=== PATIENT | male | born 1935 | race Caucasian/White ===

== ENCOUNTER 2017-12-28 10:08 | Day surgery (SDC) | payer MEDICARE, BC ==
[~2017-12-28 10:08] MED LIST: Bupivacaine 0.5% 50 ML MDV ONE; Lidocaine 1% with EPINEPHrine 1:100,000 50 ML MDV ONE; Midazolam 1 MG/ML 2 ML SDV ONE; Propofol 200 MG/20 ML SDV ONE; fentaNYL 100 MCG/2 ML SDV ONE
[2017-12-28] MEDS ORDERED: Lactated Ringers 1,000 ML IV SCH (10:45)
[2017-12-28] MEDS ORDERED: ceFAZolin 2 GM in Premix Bag 1 BAG IV ONE (11:30)
[2017-12-28] MEDS ORDERED: metroNIDAZOLE/Normal Saline 500 MG in Premix Bag 1 BAG IV ONE (11:30)
--- NOTE | 2017-12-28 13:34 | OR ---
DATE OF PROCEDURE: 12/28/2017 PROCEDURE: Open inguinal hernia, left, inguinal hernia, incarcerated, non-strangulated. COMPLICATIONS: None. PLANT UTILITIES ENGINEER: None. ANESTHESIA: MAC/local. RISKS: Risks, benefits, alternatives, and limitations including, but not limited to infection, bleeding, injury to abdominal structures, recurrence, chronic wound, chronic pain formation, and other risks not listed here were explained, and the patient then wished to proceed. PROCEDURE IN DETAIL: The patient was placed in the supine position. A curvilinear incision was made in a classic fashion approximately 1 fingerbreadth above the pubis on the left. This was done after anesthetizing with lidocaine in a standard wheal fashion. The skin was transected with a 15 blade, and electrocautery was used to carry down to the external oblique aponeurosis, which was opened with a 15 blade. Metzenbaum scissors were used to open the external oblique aponeurosis. The indirect incarcerated inguinal hernia was identified and was mobilized, eventually dissected, and deflected back into the abdomen. Uebe-[id number]-[id number] system was then used to close the defect. This was sutured into place multiple times using 0 Vicryl suture. The overlay patch was also sewed in proximity to the pubic symphysis. This was sutured approximately over 1 cm. For subcutaneous tissues, 3-0 Vicryl was used. The skin was closed with 4-0 Vicryl. Dermabond was applied. The patient tolerated the procedure well. Ion Renteria MD /[id number]
== END 2017-12-28 14:16 | disposition home or self-care (01) ==
LOC: JP.SDS 10:08
PROVIDERS: ATTEND Surgery
DX: K40.30 Unilateral inguinal hernia, with obstruction, without gangrene, not specified as recurrent (principal); I10 Essential (primary) hypertension; Z86.73 Personal history of transient ischemic attack (TIA), and cerebral infarction without residual deficits
CPT/HCPCS: 49507; C1781; J0690; J2250; J2704; J3010; J7120

== ENCOUNTER 2020-11-08 08:24 | Inpatient (IN) | payer BC, MEDICARE ==
[2020-11-08] MEDS ORDERED: Lactated Ringers 1,000 ML IV ONE (09:14)
[2020-11-08] MEDS ORDERED: Phytonadione 5 MG Tab PO ONE (09:19)
[2020-11-08] MEDS ORDERED: Sodium Chloride 0.9% 10 ML Syringe FLUSH PRN (09:27)
--- NOTE | 2020-11-08 09:33 | EDM.PDOC ---
ED HPI GENERAL MEDICAL PROBLEM - General Chief Complaint: Gastrointestinal Problem Stated Complaint: BODY SWEATS, BLOOD IN URINE, DIARRHEA Time Seen by Provider: 11/08/20 09:15 Source of Information: Reports: Patient, Family, Old Records, RN History Limitations: Reports: No Limitations - History of Present Illness INITIAL COMMENTS - FREE TEXT/NARRATIVE: 85 yo male presents along with his due to dark blood per rectum this morning after awakening along with diaphoresis. He is on warfarin for afib. He has had colonoscopy remotely, but is unable to tell me if he had diverticular dz or not. He denies any abdominal pain. He has had mild nausea without vomiting. No hx of GI bleeding in the past. One bloody stool passage so far today. Onset: Today, Sudden Onset Date: 11/08/20 Duration: Minutes:, Constant Location: Reports: Abdomen Quality: Reports: Other (no pain) Severity: Moderate Improves with: Reports: None Worsens with: Reports: None Context: Reports: Other (See HPI) Associated Symptoms: Reports: Nausea/Vomiting (no vomiting). Denies: Fever/Chills - Related Data Allergies Allergy/AdvReac Type Severity Reaction Status Date / Time No Known Allergies Allergy Verified 11/08/20 08:43 Home Meds: Home Meds Aspirin [Halfprin] 81 mg PO DAILY 12/27/17 [History] Pravastatin Sodium [Pravachol] 20 mg PO DAILY 12/27/17 [History] Warfarin [Coumadin] 2.5 mg PO ASDIRECTED 12/27/17 [History] allopurinoL [Zyloprim] 300 mg PO BEDTIME 12/27/17 [History] dilTIAZem HCL [Cartia Xt] 120 mg PO DAILY 12/27/17 [History] Loratadine [Claritin] 10 mg PO DAILY 11/08/20 [History] atenoloL [Atenolol] 12.5 mg PO BID 11/08/20 [History] Past Medical History HEENT History: Reports: Allergic Rhinitis Cardiovascular History: Reports: Arrhythmia, High Cholesterol, Hypertension, Other (See Below) Other Cardiovascular History: "incedent" Respiratory History: Reports: None Gastrointestinal History: Reports: Chronic Constipation Genitourinary History: Reports: Prostate Disorder, Other (See Below) Other Genitourinary History: CA prostate Musculoskeletal History: Reports: Amputation, Neck Pain, Chronic Neurological History: Reports: Migraines Psychiatric History: Reports: None Endocrine/Metabolic History: Reports: Obesity/BMI 30+ Hematologic History: Reports: None Immunologic History: Reports: None Oncologic (Cancer) History: Reports: Prostate Dermatologic History: Reports: Other (See Below) Other Dermatologic History: 'skin cancer' - Infectious Disease History Infectious Disease History: Reports: Chicken Pox, Herpes, Mumps - Past Surgical History HEENT Surgical History: Reports: None Cardiovascular Surgical History: Reports: None Respiratory Surgical History: Reports: None GI Surgical History: Reports: Appendectomy, Colonoscopy, Hernia, Abdominal Male Surgical History: Reports: Other (See Below) Other Male Surgeries/Procedures: radiation prostate Endocrine Surgical History: Reports: None Neurological Surgical History: Reports: Other (See Below) Other Neurological Surgeries/Procedures: disc between 3&4 neck Musculoskeletal Surgical History: Reports: Amputation, Carpal Tunnel, Other (See Below) Other Musculoskeletal Surgeries/Procedures:: neck surgery 3rd and 4th vertebre . Dermatological Surgical History: Reports: None Social & Family History - Family History Family Medical History: No Pertinent Family History - Tobacco Use Tobacco Use Status *Q: Never Tobacco User - Caffeine Use Caffeine Use: Reports: None Other Caffeine Use: decaf coffee - Recreational Drug Use Recreational Drug Use: No ED ROS GENERAL - Review of Systems Review Of Systems: See Below Constitutional: Reports: No Symptoms HEENT: Reports: No Symptoms Respiratory: Reports: No Symptoms Cardiovascular: Reports: No Symptoms GI/Abdominal: Reports: Bloody Stool, Nausea. Denies: Abdominal Pain, Constipation, Hematemesis, Hematochezia, Vomiting : Reports: No Symptoms Musculoskeletal: Reports: No Symptoms Skin: Reports: No Symptoms Neurological: Reports: No Symptoms ED EXAM, GI/ABD - Physical Exam Exam: See Below Exam Limited By: No Limitations General Appearance: Alert, WD/WN, No Apparent Distress Eyes: Bilateral: Normal Appearance Ears: Normal External Exam, Normal Canal, Hearing Loss, Other (bilateral hearing aids). No: Hearing Grossly Normal Nose: Normal Inspection, No Blood Throat/Mouth: Normal Inspection, Normal Lips, Normal Oropharynx, Normal Voice, No Airway Compromise Head: Atraumatic, Normocephalic Neck: Normal Inspection Respiratory/Chest: No Respiratory Distress, Lungs Clear, Normal Breath Sounds, No Accessory Muscle Use Cardiovascular: Regular Rate, Rhythm, No Edema GI/Abdominal Exam: Soft, Non-Tender, No Distention, Abnormal Bowel Sounds (increased). No: Distended, Guarding, Rigid, Rebound, Tender Back Exam: Normal Inspection Extremities: Normal Inspection, Normal Range of Motion, Non-Tender, No Pedal Edema Neurological: Alert, Oriented, CN II-XII Intact, Normal Cognition, No Motor/Sensory Deficits Psychiatric: Normal Affect, Normal Mood Skin Exam: Warm, Dry, Intact, Normal Color, No Rash Course - Vital Signs Text/Narrative:: Dr. Adamson called @ 0932h, will see in ER Last Recorded V/S: Last Vital Signs Temp 36.2 C 11/08/20 09:03 Pulse 89 11/08/20 09:03 Resp 22 H 11/08/20 09:03 BP 110/66 11/08/20 09:03 Pulse Ox 97 11/08/20 09:03 Orthostatic Blood Pressure [ 82/51 Sitting] Orthostatic Blood Pressure [ 113/71 Supine] - Orders/Labs/Meds Orders: Active Orders 24 hr Category Date Time Status Orthostatic Vital Signs [RC] ASDIRECTED Care 11/08/20 08:37 Active TYPE AND SCREEN [BBK] Stat Lab 11/08/20 09:14 Ordered Lactated Ringers [Ringers, Lactated] 1,000 ml Med 11/08/20 09:14 Active IV BOLUS Sodium Chloride 0.9% [Saline Flush] Med 11/08/20 09:27 Active 10 ml FLUSH ASDIRECTED PRN Saline Lock Insert [OM.PC] Routine Oth 11/08/20 09:27 Ordered Medication Orders Lactated Ringer's (Ringers, Lactated) 1,000 mls @ 1,000 mls/hr IV BOLUS ONE Stop: 11/08/20 10:13 Sodium Chloride (Saline Flush) 10 ml FLUSH ASDIRECTED PRN PRN Reason: Keep Vein Open Labs: Laboratory Tests 11/08/20 11/08/20 11/08/20 Range/Units 08:40 08:40 09:13 WBC 11.5 H (4.5-11.0) K/uL RBC 4.55 (4.30-5.90) M/uL Hgb 14.6 (12.0-15.0) g/dL Hct 44.2 (40.0-54.0) % MCV 97 (80-98) fL MCH 32 H (27-31) pg MCHC 33 (32-36) % Plt Count 249 (150-400) K/uL PT 21.9 H (9.5-12.0) sec INR 2.04 H (0.80-1.20) Sodium 139 L (140-148) mmol/L Potassium 4.9 (3.6-5.2) mmol/L Chloride 104 (100-108) mmol/L Carbon Dioxide 25 (21-32) mmol/L Anion Gap 14.9 H (5.0-14.0) mmol/L BUN 33 H D (7-18) mg/dL Creatinine 1.3 (0.8-1.3) mg/dL Est Cr Clr Drug Dosing 40.79 mL/min Estimated GFR (MDRD) 52 L (>60) Glucose 140 H (74-106) mg/dL Calcium 9.0 (8.5-10.1) mg/dL Meds: Medications Generic Name Dose Route Start Last Admin Trade Name Freq PRN Reason Stop Dose Admin Lactated Ringer's 1,000 mls @ 1,000 mls/hr 11/08/20 09:14 Ringers, Lactated IV 11/08/20 10:13 BOLUS ONE Sodium Chloride 10 ml 11/08/20 09:27 Saline Flush FLUSH ASDIRECTED PRN Keep Vein Open Discontinued Medications Generic Name Dose Route Start Last Admin Trade Name Freq PRN Reason Stop Dose Admin Phytonadione 5 mg 11/08/20 09:19 Mephyton PO 11/08/20 09:20 ONETIME ONE Departure - Departure Time of Disposition: 09:50 Disposition: Admitted As Inpatient 65 Condition: Fair Clinical Impression: GI bleed Qualifiers: GI bleed type/associated pathology: unspecified gastrointestinal hemorrhage type Qualified Code(s): K92.2 - Gastrointestinal hemorrhage, unspecified - Discharge Information *PRESCRIPTION DRUG MONITORING PROGRAM REVIEWED*: Not Applicable *COPY OF PRESCRIPTION DRUG MONITORING REPORT IN PATIENT ALLEN: Not Applicable Referrals: Stiven Alcantar MD [Primary Care Provider] - Forms: ED Department Discharge Sepsis Event Note (ED) - Evaluation Sepsis Screening Result: No Definite Risk - Focused Exam Vital Signs: Vital Signs Temp Pulse Resp BP Pulse Ox 11/08/20 09:03 36.2 C 89 22 H 110/66 97 - My Orders Last 24 Hours: My Active Orders 11/08/20 08:37 Orthostatic Vital Signs [RC] ASDIRECTED 11/08/20 09:14 TYPE AND SCREEN [BBK] Stat Lactated Ringers [Ringers, Lactated] 1,000 ml IV BOLUS 11/08/20 09:27 Sodium Chloride 0.9% [Saline Flush] 10 ml FLUSH ASDIRECTED PRN Saline Lock Insert [OM.PC] Routine - Assessment/Plan Last 24 Hours: My Active Orders 11/08/20 08:37 Orthostatic Vital Signs [RC] ASDIRECTED 11/08/20 09:14 TYPE AND SCREEN [BBK] Stat Lactated Ringers [Ringers, Lactated] 1,000 ml IV BOLUS 11/08/20 09:27 Sodium Chloride 0.9% [Saline Flush] 10 ml FLUSH ASDIRECTED PRN Saline Lock Insert [OM.PC] Routine
--- NOTE | 2020-11-08 10:36 | PCM.HP.2 ---
H&P History of Present Illness - General Date of Service: 11/08/20 Admit Problem/Dx: Admission Diagnosis/Problem Admission Diagnosis/Problem Gastrointestinal hemorrhage Source of Information: Patient, Provider History Limitations: Reports: No Limitations - History of Present Illness Initial Comments - Free Text/Narative: CC: Things just weren't right HPI: Дмитрий presented to the emergency room this morning after an episode of nausea, diaphoresis and a large bloody bowel movement. He reports that things had been going well prior to this morning. He has not had any recent difficulties or concerns. This morning when he got up he just did not feel quite right. He felt a little bit nauseated and a little bit woozy with some lightheadedness. Shortly thereafter he had the urge to have a bowel movement and headed to the bathroom. He reports a very large bowel movement that seemed like it was mostly blood and stained the toilet bowl. Since that time his dizziness has improved but has not resolved. He was diaphoretic at the time of the bowel movement but this has resolved. He has not had any abdominal pain this morning or recently. He does report mild constipation over the past couple of days but otherwise nothing out of the ordinary. He has never had an episode like this in the past. No fevers, cough or shortness of breath. He is not taking any new medications. No recent trauma. Work-up in the emergency room revealed a normal hemoglobin. INR is 2. Orthostatic vital signs were quite positive and he is receiving IV fluid boluses. Acute gastrointestinal hemorrhage, likely diverticular, is suspected. He did receive 5 mg of vitamin K in the emergency room. The patient will be admitted to the intensive care unit for further management. - Related Data Allergies/Adverse Reactions: Allergies Allergy/AdvReac Type Severity Reaction Status Date / Time No Known Allergies Allergy Verified 11/08/20 08:43 Home Medications: Home Meds Aspirin [Halfprin] 81 mg PO DAILY 12/27/17 [History] Pravastatin Sodium [Pravachol] 20 mg PO DAILY 12/27/17 [History] Warfarin [Coumadin] 2.5 mg PO ASDIRECTED 12/27/17 [History] allopurinoL [Zyloprim] 300 mg PO BEDTIME 12/27/17 [History] dilTIAZem HCL [Cartia Xt] 120 mg PO DAILY 12/27/17 [History] Loratadine [Claritin] 10 mg PO DAILY 11/08/20 [History] atenoloL [Atenolol] 12.5 mg PO BID 11/08/20 [History] Past Medical History HEENT History: Reports: Allergic Rhinitis Cardiovascular History: Reports: Arrhythmia, High Cholesterol, Hypertension, Other (See Below) Other Cardiovascular History: "incedent" Respiratory History: Reports: None Gastrointestinal History: Reports: Chronic Constipation Genitourinary History: Reports: Prostate Disorder, Other (See Below) Other Genitourinary History: CA prostate Musculoskeletal History: Reports: Amputation, Neck Pain, Chronic Neurological History: Reports: Migraines Psychiatric History: Reports: None Endocrine/Metabolic History: Reports: Obesity/BMI 30+ Hematologic History: Reports: None Immunologic History: Reports: None Oncologic (Cancer) History: Reports: Prostate Dermatologic History: Reports: Other (See Below) Other Dermatologic History: 'skin cancer' - Infectious Disease History Infectious Disease History: Reports: Chicken Pox, Herpes, Mumps - Past Surgical History HEENT Surgical History: Reports: None Cardiovascular Surgical History: Reports: None Respiratory Surgical History: Reports: None GI Surgical History: Reports: Appendectomy, Colonoscopy, Hernia, Abdominal Male Surgical History: Reports: Other (See Below) Other Male Surgeries/Procedures: radiation prostate Endocrine Surgical History: Reports: None Neurological Surgical History: Reports: Other (See Below) Other Neurological Surgeries/Procedures: disc between 3&4 neck Musculoskeletal Surgical History: Reports: Amputation, Carpal Tunnel, Other (See Below) Other Musculoskeletal Surgeries/Procedures:: neck surgery 3rd and 4th vertebre . Dermatological Surgical History: Reports: None Social & Family History - Family History Family Medical History: No Pertinent Family History - Tobacco Use Tobacco Use Status *Q: Never Tobacco User - Caffeine Use Caffeine Use: Reports: None Other Caffeine Use: decaf coffee - Alcohol Use Alcohol Use History: No - Recreational Drug Use Recreational Drug Use: No H&P Review of Systems - Review of Systems: Review Of Systems: See Below Free Text/Narrative: A complete 12 point review of systems was obtained. Pertinent positives and negatives are noted in the history of present illness. All other systems were reviewed and were negative except as noted. Exam - Exam Exam: See Below - Vital Signs Vital Signs: Last Vital Signs Temp 36.2 C 11/08/20 09:03 Pulse 89 11/08/20 09:03 Resp 22 H 01/31/21 09:03 BP 110/66 11/08/20 09:03 Pulse Ox 97 11/08/20 09:03 Orthostatic Blood Pressure [ 82/51 Sitting] Orthostatic Blood Pressure [ 113/71 Supine] Weight: 96.162 kg - Exam Quality Assessment: No: Supplemental Oxygen General: Alert, Oriented, Cooperative. No: Mild Distress HEENT: Conjunctiva Clear, Mucosa Moist & [place]. No: Scleral Icterus Neck: Supple, Trachea Midline Lungs: Clear to Auscultation, Normal Respiratory Effort Cardiovascular: Irregular Rhythm, Tachycardia GI/Abdominal Exam: Soft, No Distention, No Mass, Abnormal Bowel Sounds (hyperactive ) Extremities: No Pedal Edema. No: Increased Warmth Peripheral Pulses: 1+: Dorsalis Pedis (L), Dorsalis Pedis (R) Skin: Warm, Dry Neuro Extensive - Mental Status: Alert, Oriented x3, Nl Response to Commands Neuro Extensive - Motor, Sensory, Reflexes: No: Dysarthria, Abnormal Motor, Tremor Psychiatric: Alert, Normal Affect - Patient Data Lab Results Last 24 hrs: Laboratory Results - last 24 hr 11/08/20 11/08/20 11/08/20 Range/Units 08:40 08:40 09:13 WBC 11.5 H (4.5-11.0) K/uL RBC 4.55 (4.30-5.90) M/uL Hgb 14.6 (12.0-15.0) g/dL Hct 44.2 (40.0-54.0) % MCV 97 (80-98) fL MCH 32 H (27-31) pg MCHC 33 (32-36) % Plt Count 249 (150-400) K/uL PT 21.9 H (9.5-12.0) sec INR 2.04 H (0.80-1.20) Sodium 139 L (140-148) mmol/L Potassium 4.9 (3.6-5.2) mmol/L Chloride 104 (100-108) mmol/L Carbon Dioxide 25 (21-32) mmol/L Anion Gap 14.9 H (5.0-14.0) mmol/L BUN 33 H D (7-18) mg/dL Creatinine 1.3 (0.8-1.3) mg/dL Est Cr Clr Drug Dosing 40.79 mL/min Estimated GFR (MDRD) 52 L (>60) Glucose 140 H (74-106) mg/dL Calcium 9.0 (8.5-10.1) mg/dL Blood Type Gel Antibody Screen 11/08/20 Range/Units 09:33 WBC (4.5-11.0) K/uL RBC (4.30-5.90) M/uL Hgb (12.0-15.0) g/dL Hct (40.0-54.0) % MCV (80-98) fL MCH (27-31) pg MCHC (32-36) % Plt Count (150-400) K/uL PT (9.5-12.0) sec INR (0.80-1.20) Sodium (140-148) mmol/L Potassium (3.6-5.2) mmol/L Chloride (100-108) mmol/L Carbon Dioxide (21-32) mmol/L Anion Gap (5.0-14.0) mmol/L BUN (7-18) mg/dL Creatinine (0.8-1.3) mg/dL Est Cr Clr Drug Dosing mL/min Estimated GFR (MDRD) (>60) Glucose (74-106) mg/dL Calcium (8.5-10.1) mg/dL Blood Type A NEGATIVE Gel Antibody Screen Negative Result Diagrams: 11/08/20 08:40 11/08/20 09:13 Sepsis Event Note - Evaluation Sepsis Screening Result: No Definite Risk - Focused Exam Vital Signs: Vital Signs Temp Pulse Resp BP Pulse Ox 11/08/20 09:03 36.2 C 89 22 H 110/66 97 *Q Meaningful Use (ADM) - VTE Risk Assess *Q Each Risk Factor Represents 1 Point: Obesity ( BMI > 25 kg/m2) Total Score 1 Point Risk Factors: 1 Each Risk Factor Represents 2 Points: Malignancy (present or previous) Total Score 2 Point Risk Factors: 2 Each Risk Factor Represents 3 Points: Age 75 Years or Greater Total Score 3 Point Risk Factors: 3 Each Risk Factor Represents 5 Points: None Total Score 5 Point Risk Factors: 0 Venous Thromboembolism Risk Factor Score *Q: 6 - Problem List (1) Acute gastrointestinal hemorrhage SNOMED Code(s): 35001917 ICD Code: K92.2 - GASTROINTESTINAL HEMORRHAGE, UNSPECIFIED Status: Acute Current Visit: Yes (2) Chronic atrial fibrillation SNOMED Code(s): 302309900 ICD Code: I48.20 - CHRONIC ATRIAL FIBRILLATION, UNSPECIFIED Status: Chronic Current Visit: Yes (3) Neoplasm of prostate SNOMED Code(s): 746966459 ICD Code: D49.5 - NEOPLASM OF UNSP BEHAVIOR OF OTHER GENITOURIN * DO NOT USE * Status: Chronic Current Visit: No Problem List Initiated/Reviewed/Updated: Yes Orders Last 24hrs: Active Orders 24 hr Category Date Time Status Patient Status Manage Transfer [TRANSFER] Routine ADT 11/08/20 10:29 Ordered Orthostatic Vital Signs [RC] ASDIRECTED Care 11/08/20 08:37 Active PATIENT RETYPE [BBK] Stat Lab 11/08/20 09:33 Results TYPE AND SCREEN [BBK] Stat Lab 11/08/20 09:33 Results Sodium Chloride 0.9% [Saline Flush] Med 11/08/20 09:27 Active 10 ml FLUSH ASDIRECTED PRN Saline Lock Insert [OM.PC] Routine Oth 11/08/20 09:27 Ordered Resuscitation Status Routine Resus Stat 11/08/20 10:31 Ordered Medication Orders Sodium Chloride (Saline Flush) 10 ml FLUSH ASDIRECTED PRN PRN Reason: Keep Vein Open Last Admin: 11/08/20 09:39 Dose: 10 ml Documented by: VERENICE Assessment/Plan Comment:: ASSESSMENT AND PLAN - Acute gastrointestinal hemorrhage-manifestations including hematochezia, presyncope and positive orthostatic vital signs. He is improving with IV fluids. No recurrence of the hematochezia. Lower GI bleed is suspected. Vital signs are currently stable other than mild tachycardia. He is anticoagulated with warfarin and has received vitamin K in the emergency room. We did discuss the utility of endoscopy. At this point he would like to hold off and see if he has additional episodes of bleeding. -Admit to the intensive care unit -Continue IV fluids -Type and cross 2 units of red blood cells -Repeat hemoglobin this afternoon -Consider colonoscopy if he has additional episodes of bleeding Chronic atrial fibrillation-he is systemically anticoagulated with warfarin and his INR is therapeutic. Rate control is borderline at this time. -Continue IV fluids -Hold warfarin -Continue beta-leigh ann and calcium channel leigh ann History of prostate cancer- Maintenance issues - - DVT prophylaxis -mechanical with active hemorrhage - GI prophylaxis -PPI - Nutrition -full liquids - Holliday catheter -not indicated CODE STATUS -full code Admission justification -this patient will be admitted for inpatient services and is medically appropriate meeting medical necessity for inpatient admission as outlined in my documentation. I reasonably expect the patient will require inpatient services that span a period time over 2 midnights. I reasonably expect this patient to be discharged or transferred within 96 hours after admission to the [facility]. Disposition -I would anticipate discharge home after the hospital stay Primary care physician -Dr. Larry Adamson M.D. - Mortality Measure Prognosis:: Good
[2020-11-08] MEDS ORDERED: LORazepam 2 MG/ML SDV IVPUSH PRN (10:46)
[2020-11-08] MEDS ORDERED: Acetaminophen 325 MG Tab PO PRN (10:46)
[2020-11-08] MEDS ORDERED: Ondansetron 4 MG/2 ML SDV IV PRN (10:46)
[2020-11-08] MEDS ORDERED: Pantoprazole 40 MG Vial IV ONE (10:46)
[2020-11-08] MEDS ORDERED: Ondansetron 4 MG Tab.DIS PO PRN (10:46)
[2020-11-08] MEDS ORDERED: Melatonin 3 MG Tab PO PRN (10:46)
[2020-11-08] MEDS ORDERED: Magnesium Hydroxide 400 MG/5 ML Susp 30 ML Cup PO PRN (10:46)
[2020-11-08] MEDS: Sodium Chloride 0.9% 1,000 ML IV SCH ×2 (13:04→20:23)
[2020-11-08] MEDS ORDERED: Polyethylene Glycol 3350 Powder 238 GM Bot PO ONE (16:00)
[2020-11-08] MEDS ORDERED: Metoprolol Tartrate 50 MG Tab PO ONE (20:03)
[2020-11-08] MEDS: Allopurinol 100 MG Tab PO SCH (20:19)
[2020-11-08] MEDS: Atenolol 25 MG Tab PO SCH (20:20)
[2020-11-08] MEDS ORDERED: Pantoprazole 40 MG Vial IVPUSH SCH (21:00)
[2020-11-09 00:46] LABS: CORONAVIRUS COVID-19 NAA NEGATIVE (NEGATIVE)
[2020-11-09] MEDS: Sodium Chloride 0.9% 1,000 ML IV SCH (07:21)
[2020-11-09] MEDS: Atenolol 25 MG Tab PO SCH ×3 (07:47→21:30)
[2020-11-09] MEDS: Diltiazem 120 MG Cap.CD PO SCH ×2 (07:49→08:09)
[2020-11-09] MEDS ORDERED: Propofol 200 MG/20 ML SDV ONE (08:38)
[2020-11-09] MEDS ORDERED: fentaNYL 100 MCG/2 ML SDV ONE (08:38)
[2020-11-09] MEDS: Pantoprazole 40 MG Vial IVPUSH SCH ×2 (11:12→22:17)
--- NOTE | 2020-11-09 11:51 | OR ---
DATE OF PROCEDURE: 11/09/2020 SURGEON: Ion Renteria MD PROCEDURES: 1. Esophagogastroduodenoscopy. 2. Colonoscopy. FINDINGS: 1. Gastric ulcer, most likely etiology of GI bleeding (not actively bleeding). 2. Old blood noted in colon. COMPLICATIONS: None. SUPERVISOR URANIUM PROCESSING: None. PREOPERATIVE DIAGNOSIS: Gastrointestinal bleeding. POSTOPERATIVE DIAGNOSIS: Gastrointestinal bleeding. RISKS: Risks, benefits, alternatives, and limitations including, but not limited to infection, bleeding, and injury to abdominal structures, perforation, false positives, false negatives, and other risks not listed here were explained to the patient and family, and they wished to proceed. PROCEDURE IN DETAIL: The patient was placed in left lateral decubitus position. The EGD scope was introduced and advanced atraumatically through second part of the duodenum. No evidence of duodenitis or ulceration. Stomach itself on retroflex had a gastric ulcer approximately 5 mm in diameter. This appeared to be not actively bleeding. GE junction was normal. The esophagus was normal. Digital rectal exam was performed next. Scope was introduced and advanced atraumatically through the ileocecal valve. There was blood noted throughout the entire colon. This was old blood. There were no polyps noted. No significant or other pathology. No diverticulosis. The prep was marginal due to the retained blood. However, approximately a 90% luminal surface could be seen. Greater than 8 minutes was spent removing the scope. The patient tolerated the procedure well and no abnormalities on retroflexion. Ion Renteria MD /[id number]
--- NOTE | 2020-11-09 13:20 | PCM.PN ---
- General Info Date of Service: 11/09/20 Subjective Update: Mr. Stokes has been fairly stable since admission yesterday, with no further evidence of active bleeding. He has continued to experience some blood in his stool but is been hemodynamically stable and has only experienced a very mild drop in hemoglobin. EGD and colonoscopy were performed this morning by Dr. Renteria. Colonoscopy showed evidence of old blood within the colon but no site of active bleeding. EGD did show a gastric ulcer that was not actively bleeding but was felt to be probable source of recent blood loss. Functional Status: Reports: Tolerating Diet, Ambulating, Urinating - Review of Systems General: Reports: Weakness. Denies: Fever, Chills Pulmonary: Reports: No Symptoms Cardiovascular: Reports: No Symptoms Gastrointestinal: Reports: Melena. Denies: Diarrhea, Difficulty Swallowing, Hematochezia, Nausea, Vomiting - Patient Data Vitals - Most Recent: Last Vital Signs Temp 97.9 F 11/09/20 11:00 Pulse 80 11/09/20 13:00 Resp 21 H 11/09/20 13:00 BP 102/57 L 11/09/20 13:00 Pulse Ox 96 11/09/20 13:00 Orthostatic Blood Pressure [ 82/51 Sitting] Orthostatic Blood Pressure [ 113/71 Supine] Weight - Most Recent: 212 lb 0.015 oz I&O - Last 24 Hours: Intake & Output 11/08/20 11/09/20 11/09/20 22:59 06:59 14:59 Intake Total 636 1137 1541 Output Total 850 800 Balance -738 486 6129 Lab Results Last 24 Hours: Laboratory Results - last 24 hr 11/08/20 11/08/20 11/09/20 Range/Units 15:12 22:40 04:15 WBC 8.9 (4.5-11.0) K/uL RBC 3.94 L (4.30-5.90) M/uL Hgb 13.2 12.6 (12.0-15.0) g/dL Hct 38.5 L (40.0-54.0) % MCV 98 (80-98) fL MCH 32 H (27-31) pg MCHC 33 (32-36) % Plt Count 193 (150-400) K/uL PT (9.5-12.0) sec INR (0.80-1.20) Sodium (140-148) mmol/L Potassium (3.6-5.2) mmol/L Chloride (100-108) mmol/L Carbon Dioxide (21-32) mmol/L Anion Gap (5.0-14.0) mmol/L BUN (7-18) mg/dL Creatinine (0.8-1.3) mg/dL Est Cr Clr Drug Dosing mL/min Estimated GFR (MDRD) (>60) Glucose (74-106) mg/dL Calcium (8.5-10.1) mg/dL Influenza Type A RNA Negflua (NEGATIVE) RSV RNA (INAAT) Negative (NEGATIVE) Influenza Type B RNA Negflub (NEGATIVE) SARS-CoV-2 RNA (HIMANSHU) Negative (NEGATIVE) 11/09/20 11/09/20 Range/Units 04:15 04:15 WBC (4.5-11.0) K/uL RBC (4.30-5.90) M/uL Hgb (12.0-15.0) g/dL Hct (40.0-54.0) % MCV (80-98) fL MCH (27-31) pg MCHC (32-36) % Plt Count (150-400) K/uL PT 16.4 H (9.5-12.0) sec INR 1.52 H (0.80-1.20) Sodium 141 (140-148) mmol/L Potassium 4.3 (3.6-5.2) mmol/L Chloride 108 (100-108) mmol/L Carbon Dioxide 25 (21-32) mmol/L Anion Gap 8.2 (5.0-14.0) mmol/L BUN 26 H (7-18) mg/dL Creatinine 1.0 (0.8-1.3) mg/dL Est Cr Clr Drug Dosing 51.30 mL/min Estimated GFR (MDRD) > 60 (>60) Glucose 92 (74-106) mg/dL Calcium 8.5 (8.5-10.1) mg/dL Influenza Type A RNA (NEGATIVE) RSV RNA (INAAT) (NEGATIVE) Influenza Type B RNA (NEGATIVE) SARS-CoV-2 RNA (HIMANSHU) (NEGATIVE) Med Orders - Current: Current Medications Acetaminophen (Tylenol) 650 mg PO Q4H PRN PRN Reason: Pain (Mild 1-3)/fever Allopurinol (Zyloprim) 300 mg PO BEDTIME [facility] Last Admin: 11/08/20 20:19 Dose: 300 mg Documented by: Atenolol (Tenormin) 12.5 mg PO BID [facility] Last Admin: 11/09/20 08:10 Dose: Not Given Documented by: Diltiazem HCl (Cardizem Cd) 120 mg PO DAILY [facility] Last Admin: 11/09/20 08:09 Dose: Not Given Documented by: Lorazepam (Ativan) 0.5 mg IVPUSH Q4H PRN PRN Reason: Nausea/Vomiting Magnesium Hydroxide (Milk Of Magnesia) 30 ml PO Q12H PRN PRN Reason: Constipation Melatonin (Melatonin) 9 mg PO BEDTIME PRN PRN Reason: Sleep Ondansetron HCl (Zofran) 4 mg IV Q6H PRN PRN Reason: Nausea/Vomiting Ondansetron HCl (Zofran Odt) 4 mg PO Q6H PRN PRN Reason: Nausea able to take PO Pantoprazole Sodium (Protonix Iv) 40 mg IVPUSH Q12H [facility] Last Admin: 11/09/20 11:12 Dose: 40 mg Documented by: Senna/Docusate Sodium (Senna Plus) 1 tab PO BID PRN PRN Reason: Constipation Sodium Chloride (Saline Flush) 10 ml FLUSH ASDIRECTED PRN PRN Reason: Keep Vein Open Last Admin: 11/08/20 09:39 Dose: 10 ml Documented by: Discontinued Medications Fentanyl (Sublimaze) Confirm Administered Dose 100 mcg .ROUTE .STK-MED ONE Stop: 11/09/20 08:39 Lactated Ringer's (Ringers, Lactated) 1,000 mls @ 1,000 mls/hr IV BOLUS ONE Stop: 11/08/20 10:13 Last Admin: 11/08/20 09:40 Dose: 1,000 mls/hr Documented by: Sodium Chloride (Normal Saline) 1,000 mls @ 100 mls/hr IV ASDIRECTED [facility] Last Admin: 11/09/20 07:21 Dose: 100 mls/hr Documented by: Metoprolol Tartrate (Lopressor) 50 mg PO ONETIME ONE Stop: 11/08/20 20:04 Last Admin: 11/08/20 20:20 Dose: 50 mg Documented by: Pantoprazole Sodium (Protonix Iv) 40 mg IV ONETIME ONE Stop: 11/08/20 10:47 Last Admin: 11/08/20 12:45 Dose: 40 mg Documented by: Pantoprazole Sodium (Protonix Iv) 40 mg IVPUSH BEDTIME [facility] Stop: 11/08/20 21:01 Last Admin: 11/08/20 20:19 Dose: 40 mg Documented by: Phytonadione (Mephyton) 5 mg PO ONETIME ONE Stop: 11/08/20 09:20 Last Admin: 11/08/20 09:40 Dose: 5 mg Documented by: Polyethylene Glycol (Miralax) 238 gm PO ONETIME ONE Stop: 11/08/20 16:01 Last Admin: 11/08/20 15:44 Dose: 238 gm Documented by: Propofol (Diprivan 20 Ml) Confirm Administered Dose 200 mg .ROUTE .STK-MED ONE Stop: 11/09/20 08:39 - Exam Quality Assessment: DVT Prophylaxis, Skin Breakdown General: Alert, Oriented, Cooperative Lungs: Clear to Auscultation, Normal Respiratory Effort Cardiovascular: Regular Rate, Regular Rhythm, No Murmurs GI/Abdominal Exam: Soft, Non-Tender, No Organomegaly, No Distention Extremities: Non-Tender, No Pedal Edema Sepsis Event Note - Evaluation Sepsis Screening Result: No Definite Risk - Focused Exam Vital Signs: Vital Signs Temp Pulse Pulse Resp BP BP BP 11/09/20 13:00 80 21 H 102/57 L 11/09/20 12:00 83 15 11/09/20 11:00 97.9 F 76 16 114/60 11/09/20 10:33 97.9 F 86 14 118/58 L 11/09/20 10:08 97.9 F 84 14 128/65 11/09/20 09:55 97.5 F 84 14 122/64 11/09/20 09:50 93 14 105/65 11/09/20 09:45 87 14 108/70 11/09/20 09:40 92 14 114/79 11/09/20 09:35 97.2 F 80 14 115/97 H 11/09/20 09:00 88 12 134/77 11/09/20 08:00 98.1 F 89 20 139/72 11/09/20 07:49 89 136/70 11/09/20 07:47 88 136/70 11/09/20 07:00 88 18 136/70 11/09/20 06:00 20 130/61 11/09/20 05:00 18 125/92 H 11/09/20 04:00 20 133/98 H 11/09/20 03:00 19 95/38 L 11/09/20 02:00 18 91/44 L Pulse Ox 11/09/20 13:00 96 11/09/20 12:00 11/09/20 11:00 94 L 11/09/20 10:33 97 11/09/20 10:08 95 11/09/20 09:55 96 11/09/20 09:50 95 11/09/20 09:45 95 11/09/20 09:40 95 11/09/20 09:35 96 11/09/20 09:00 97 11/09/20 08:00 94 L 11/09/20 07:49 11/09/20 07:47 11/09/20 07:00 94 L 11/09/20 06:00 95 11/09/20 05:00 95 11/09/20 04:00 94 L 11/09/20 03:00 94 L 11/09/20 02:00 93 L - Problem List Review Problem List Initiated/Reviewed/Updated: Yes - My Orders Last 24 Hours: My Active Orders 11/09/20 Breakfast Full Liquid Diet [DIET] 11/09/20 10:55 Convert IV to Saline Lock [OM.PC] Routine 11/09/20 11:00 Pantoprazole [ProTONIX IV] 40 mg IVPUSH Q12H 11/09/20 17:00 HGB [HEMOGLOBIN] [HEME] Stat 11/10/20 05:00 CBC WITH AUTO DIFF [HEME] Timed INR,PT,PROTHROMBIN TIME [COAG] Timed 11/10/20 Breakfast GI Soft Low Fiber [Soft Diet] [DIET] - Plan Plan:: ASSESSMENT AND PLAN - Gastric ulcer with acute GI bleed-also identified on EGD today, no evidence of active bleeding. Colonoscopy showed old blood but again no evidence of active bleeding. -Admit to the intensive care unit -Saline lock IV -Type and cross 2 units of red blood cells -Repeat hemoglobin this afternoon and in a.m. -Surgical follow-up per Dr. Renteria -Protonix 40 mg IV twice daily -Full liquid diet, advance to soft diet in a.m. Chronic atrial fibrillation-following vitamin K given in the emergency department INR is down to 1.56 -Reassess INR in a.m. -Hold warfarin -Continue beta-leigh ann and calcium channel leigh ann History of prostate cancer Maintenance issues - DVT prophylaxis -mechanical with active hemorrhage - GI prophylaxis -PPI - Nutrition -full liquids - Holliday catheter -not indicated CODE STATUS -full code Admission justification -this patient will be admitted for inpatient services and is medically appropriate meeting medical necessity for inpatient admission as outlined in my documentation. I reasonably expect the patient will require inpatient services that span a period time over 2 midnights. I reasonably expect this patient to be discharged or transferred within 96 hours [facility] Disposition -I would anticipate discharge home after the hospital stay Primary care physician -Dr. Juarez
[2020-11-09] MEDS: Allopurinol 100 MG Tab PO SCH (21:31)
[2020-11-10] MEDS: Atenolol 25 MG Tab PO SCH (09:12)
[2020-11-10] MEDS: Diltiazem 120 MG Cap.CD PO SCH (09:13)
--- NOTE | 2020-11-10 10:14 | PCM.DCSUM1 ---
Discharge Summary - Hospital Course Brief History: Mr. Stokes is an 85-year-old gentleman who was admitted through the emergency department for further evaluation of GI bleed. - Discharge Data Discharge Date: 11/10/20 Discharge Disposition: Home, Self-Care 01 Condition: Fair - Referral to Home Health Primary Care Physician: Stiven Alcantar MD - Discharge Diagnosis/Problem(s) (1) Acute blood loss anemia SNOMED Code(s): 779305389 ICD Code: D62 - ACUTE POSTHEMORRHAGIC ANEMIA Status: Acute Current Visit: Yes (2) Gastric ulcer SNOMED Code(s): 875981741 ICD Code: K25.9 - GASTRIC ULCER, UNSP ACUTE OR CHRONIC, W/O HEMOR OR PERF Status: Acute Current Visit: Yes (3) intermediate frame tender current use of anticoagulant SNOMED Code(s): 525025977 ICD Code: Z79.01 - JAIL (CURRENT) USE OF ANTICOAGULANTS Status: Chronic Current Visit: No (4) Acute gastrointestinal hemorrhage SNOMED Code(s): 10970628 ICD Code: K92.2 - GASTROINTESTINAL HEMORRHAGE, UNSPECIFIED Status: Acute Current Visit: Yes (5) Chronic atrial fibrillation SNOMED Code(s): 648844815 ICD Code: I48.20 - CHRONIC ATRIAL FIBRILLATION, UNSPECIFIED Status: Chronic Current Visit: Yes - Patient Summary/Data Consults: Consultations 11/08/20 15:25 Consult to Physician [CONS] Routine Consulting Provider: Ion Renteria Call Completed to Consulting Physician: Yes Reason for Consult: gi bleed Person Notified: RW Date Notified: 11/08/20 Special Instructions: EGD and colon in the am Hospital Course: Mr. Stokes presented to the emergency room after an episode of nausea, diaphoresis and a large bloody bowel movement. He has not had any recent difficulties or concerns. This morning when he got up he just did not feel quite right. He felt a little bit nauseated and a little bit woozy with some lightheadedness. Shortly thereafter he had the urge to have a bowel movement and headed to the bathroom. He reports a very large bowel movement that seemed like it was mostly blood and stained the toilet bowl. He is on long-term oral anticoagulation with warfarin for atrial fibrillation. Since that time his di zziness has improved but has not resolved. He was diaphoretic at the time of the bowel movement but this has resolved. He has not had any abdominal pain this morning or recently. He does report mild constipation over the past couple of days but otherwise nothing out of the ordinary. He has never had an episode like this in the past. Work-up in the emergency room revealed a normal hemoglobin. INR is 2. Orthostatic vital signs were quite positive and he received IV fluid boluses. Acute gastrointestinal hemorrhage, likely diverticular, is suspected. He did receive 5 mg of vitamin K in the emergency room. The patient will be admitted to the intensive care unit for further management. On admission serial hemoglobin levels were obtained and through his hospital course hemoglobin did drop approximately 3 g. He received further IV fluids as well as a colonoscopy prep. On the day after admission he was seen and evaluated by Dr. Renteria, colonoscopy and EGD were performed. Colono scopy showed old blood through the colon but no areas of active bleeding. EGD did document a gastric ulcer which was felt to be the probable source of recent blood loss. He was treated with Protonix 40 mg twice daily through his hospital stay. On the day of discharge hemoglobin had dropped to 11.6, I encouraged him to stay 1 more day in the hospital so we could monitor hemoglobin levels to make sure there was no further active bleeding. He refused this recommendation and will be discharged home per his request. He will be on Protonix already milligrams twice daily for the next 2 weeks, then once daily thereafter. He will follow a soft low residue diet for the next 2 weeks as well. Follow-up appointment will be scheduled with Dr. Renteria for EGD in 1 month. Follow-up appointment will be scheduled with his primary care provider within 1 week, hemoglobin level will be obtained at the time of follow-up appointment. Activity will be as tolerated and he will remain on a soft low residue diet. He is instructed to return immediately to the emergency department if he notes any further evidence of bleeding. - Patient Instructions Diet: GI Soft/Low Residue/Low Fiber Activity: As Tolerated Other/Special Instructions: Please schedule follow-up appointment with primary care provider within 1 week, hemoglobin should be obtained at the time of that appointment. Please schedule follow-up EGD with Dr. Renteria in 1 month. Return to the emergency department if you notice any further evidence of bleeding or blood in the stool. - Discharge Plan *PRESCRIPTION DRUG MONITORING PROGRAM REVIEWED*: Not Applicable *COPY OF PRESCRIPTION DRUG MONITORING REPORT IN PATIENT ALLEN: Not Applicable Prescriptions/Med Rec: Pantoprazole Sodium [Protonix] 40 mg PO BID #30 tablet. Home Medications: Home Meds Aspirin [Halfprin] 81 mg PO DAILY 12/27/17 [History] Pravastatin Sodium [Pravachol] 20 mg PO DAILY 12/27/17 [History] allopurinoL [Zyloprim] 300 mg PO BEDTIME 12/27/17 [History] dilTIAZem HCL [Cartia Xt] 120 mg PO DAILY 12/27/17 [History] Loratadine [Claritin] 10 mg PO DAILY 11/08/20 [History] atenoloL [Atenolol] 12.5 mg PO BID 11/08/20 [History] Pantoprazole Sodium [Protonix] 40 mg PO BID #30 tablet. 11/10/20 [Rx] Referrals: Stiven Alcantar MD [Primary Care Provider] - 11/17/20 1:40 pm (Please arrive 15 minutes early to register for your appointment.) - Discharge Summary/Plan Comment DC Time >30 min.: No - Patient Data Vitals - Most Recent: Last Vital Signs Temp 97.1 F 11/10/20 02:00 Pulse 102 H 11/10/20 09:13 Resp 18 11/10/20 09:00 BP 127/70 11/10/20 09:13 Pulse Ox 93 L 11/10/20 09:00 Orthostatic Blood Pressure [ 82/51 Sitting] Orthostatic Blood Pressure [ 113/71 Supine] Weight - Most Recent: 212 lb 0.015 oz I&O - Last 24 hours: Intake & Output 11/09/20 11/10/20 11/10/20 22:59 06:59 14:59 Intake Total 860 Output Total 150 450 Balance 710 -450 Lab Results - Last 24 hrs: Laboratory Results - last 24 hr 11/09/20 11/10/20 11/10/20 Range/Units 17:00 05:25 05:25 WBC 9.4 (4.5-11.0) K/uL RBC 3.52 L (4.30-5.90) M/uL Hgb 12.5 11.3 L (12.0-15.0) g/dL Hct 34.8 L (40.0-54.0) % MCV 99 H (80-98) fL MCH 32 H (27-31) pg MCHC 33 (32-36) % Plt Count 200 (150-400) K/uL Neut % (Auto) 67 H (36-66) % Lymph % (Auto) 18 L (24-44) % Summers % (Auto) 12 H (2-6) % Eos % (Auto) 3 (2-4) % Baso % (Auto) 0 (0-1) % PT 13.4 H (9.5-12.0) sec INR 1.23 H (0.80-1.20) Med Orders - Current: Current Medications Acetaminophen (Tylenol) 650 mg PO Q4H PRN PRN Reason: Pain (Mild 1-3)/fever Allopurinol (Zyloprim) 300 mg PO BEDTIME [facility] Last Admin: 11/09/20 21:31 Dose: 300 mg Documented by: Atenolol (Tenormin) 12.5 mg PO BID [facility] Last Admin: 11/10/20 09:12 Dose: 12.5 mg Documented by: Diltiazem HCl (Cardizem Cd) 120 mg PO DAILY [facility] Last Admin: 11/10/20 09:13 Dose: 120 mg Documented by: Lorazepam (Ativan) 0.5 mg IVPUSH Q4H PRN PRN Reason: Nausea/Vomiting Magnesium Hydroxide (Milk Of Magnesia) 30 ml PO Q12H PRN PRN Reason: Constipation Melatonin (Melatonin) 9 mg PO BEDTIME PRN PRN Reason: Sleep Ondansetron HCl (Zofran) 4 mg IV Q6H PRN PRN Reason: Nausea/Vomiting Ondansetron HCl (Zofran Odt) 4 mg PO Q6H PRN PRN Reason: Nausea able to take PO Pantoprazole Sodium (Protonix Iv) 40 mg IVPUSH Q12H [facility] Last Admin: 11/09/20 22:17 Dose: 40 mg Documented by: Senna/Docusate Sodium (Senna Plus) 1 tab PO BID PRN PRN Reason: Constipation Sodium Chloride (Saline Flush) 10 ml FLUSH ASDIRECTED PRN PRN Reason: Keep Vein Open Last Admin: 11/08/20 09:39 Dose: 10 ml Documented by: Discontinued Medications Fentanyl (Sublimaze) Confirm Administered Dose 100 mcg .ROUTE .STK-MED ONE Stop: 11/09/20 08:39 Lactated Ringer's (Ringers, Lactated) 1,000 mls @ 1,000 mls/hr IV BOLUS ONE Stop: 11/08/20 10:13 Last Admin: 11/08/20 09:40 Dose: 1,000 mls/hr Documented by: Sodium Chloride (Normal Saline) 1,000 mls @ 100 mls/hr IV ASDIRECTED [facility] Last Admin: 11/09/20 07:21 Dose: 100 mls/hr Documented by: Metoprolol Tartrate (Lopressor) 50 mg PO ONETIME ONE Stop: 11/08/20 20:04 Last Admin: 11/08/20 20:20 Dose: 50 mg Documented by: Pantoprazole Sodium (Protonix Iv) 40 mg IV ONETIME ONE Stop: 11/08/20 10:47 Last Admin: 11/08/20 12:45 Dose: 40 mg Documented by: Pantoprazole Sodium (Protonix Iv) 40 mg IVPUSH BEDTIME [facility] Stop: 11/08/20 21:01 Last Admin: 11/08/20 20:19 Dose: 40 mg Documented by: Phytonadione (Mephyton) 5 mg PO ONETIME ONE Stop: 11/08/20 09:20 Last Admin: 11/08/20 09:40 Dose: 5 mg Documented by: Polyethylene Glycol (Miralax) 238 gm PO ONETIME ONE Stop: 11/08/20 16:01 Last Admin: 11/08/20 15:44 Dose: 238 gm Documented by: Propofol (Diprivan 20 Ml) Confirm Administered Dose 200 mg .ROUTE .STK-MED ONE Stop: 11/09/20 08:39 - Exam General: Reports: Alert, Oriented, Cooperative, No Acute Distress Lungs: Reports: Clear to Auscultation, Normal Respiratory Effort Cardiovascular: Reports: Regular Rate, No Murmurs, Irregular Rhythm GI/Abdominal Exam: Soft, Non-Tender, No Organomegaly, No Distention Extremities: Non-Tender, No Pedal Edema *Q Meaningful Use (DIS) - VTE *Q VTE Pharmacological Contraindications *Q: Active Hemorrhage
== END 2020-11-10 11:15 | disposition home or self-care (01) | DRG 378 ==
LOC: JP.ED 08:24 → JP.ICU 10:46
PROVIDERS: ADMIT Internal Medicine; ATTEND Hospitalist
PROC: 0DJ08ZZ Inspection of Upper Intestinal Tract, Via Natural or Artificial Opening Endoscopic (ICD-10-PCS; principal; 2020-11-09)
PROC: 0DJD8ZZ Inspection of Lower Intestinal Tract, Via Natural or Artificial Opening Endoscopic (ICD-10-PCS; 2020-11-09)
DX: K92.2 Gastrointestinal hemorrhage, unspecified (principal); J30.9 Allergic rhinitis, unspecified; E78.00 Pure hypercholesterolemia, unspecified; K25.4 Chronic or unspecified gastric ulcer with hemorrhage; D62 Acute posthemorrhagic anemia; G89.29 Other chronic pain; M54.2 Cervicalgia; I48.20 Chronic atrial fibrillation, unspecified; Z85.828 Personal history of other malignant neoplasm of skin; I10 Essential (primary) hypertension; Z79.82 Long term (current) use of aspirin; Z79.899 Other long term (current) drug therapy; Z20.822 Contact with and (suspected) exposure to COVID-19; E78.5 Hyperlipidemia, unspecified; K59.09 Other constipation; Z85.46 Personal history of malignant neoplasm of prostate; Z79.01 Long term (current) use of anticoagulants; Z90.89 Acquired absence of other organs; Z98.890 Other specified postprocedural states
CPT/HCPCS: 0241U; 36415; 80048; 85018; 85025; 85027; 85610; 86850; 86900; 86901; 86920; 86922; 96374; 99283; 99285-25; A9270-GY; C9113; J2704; J3010; J7030; J7120

== ENCOUNTER 2020-12-10 06:42 | Day surgery (SDC) | payer MEDICARE ==
[2020-12-10] MEDS ORDERED: Propofol 200 MG/20 ML SDV ONE (07:43)
[2020-12-10] MEDS ORDERED: fentaNYL 100 MCG/2 ML SDV ONE (07:43)
[2020-12-10] MEDS ORDERED: Sodium Chloride 0.9% 1,000 ML IV SCH (08:30)
--- NOTE | 2020-12-10 12:42 | OR ---
DATE OF PROCEDURE: 12/10/2020 SURGEON: Ion Renteria MD PROCEDURE: Esophagogastroduodenoscopy. FINDINGS: 1. Significant improvement/resolution of gastric ulcer. 2. Cold biopsy forceps for biopsy of gastric antrum to evaluate for H pylori. 3. Inflammation at GE junction with a small tongue of abnormal tissue concerning for reflux disease. 4. Small hiatal hernia, approximately 2 cm. COMPLICATIONS: None. LABOR DELIVERY SPECIALIST: None. ANESTHESIA: MAC. PREOPERATIVE DIAGNOSIS: History of gastric ulcer. POSTOPERATIVE DIAGNOSIS: History of gastric ulcer. RISKS: Risks, benefits, alternatives, and limitations including, but not limited to infection, bleeding, false positives and false negatives were explained to the patient who wished to proceed. PROCEDURE IN DETAIL: The patient was placed in left lateral decubitus position. EGD scope was introduced and advanced atraumatically to the second part of the duodenum. No evidence of duodenitis or ulceration. Within the stomach itself, it appears that the gastric ulcer has essentially resolved. Cold biopsy forceps were used to biopsy for H pylori purposes. On retroflexion, the patient has small hiatal hernia. The GE junction on the right side showed a small tongue less than 1 cm of inflammation. This was biopsied using cold biopsy forceps along with the other 3 quadrants. The remainder of the esophagus was normal. The patient tolerated the procedure well. Ion Renteria MD /[id number]
== END 2020-12-10 10:05 | disposition home or self-care (01) ==
LOC: JP.SDS 06:42
PROVIDERS: ATTEND Surgery
DX: K29.50 Unspecified chronic gastritis without bleeding (principal); K31.89 Other diseases of stomach and duodenum; K25.9 Gastric ulcer, unspecified as acute or chronic, without hemorrhage or perforation; K44.9 Diaphragmatic hernia without obstruction or gangrene; I48.91 Unspecified atrial fibrillation; E66.9 Obesity, unspecified
CPT/HCPCS: 43239; J2704; J3010; J7030